=== PATIENT | female | born 1965 | race Caucasian/White ===

== ENCOUNTER 2017-10-23 12:33 | Emergency (ER) | payer OTHER ==
[~2017-10-23] VITALS: Ht 152.4 cm; Wt 72.8 kg
[2017-10-23 12:41] VITALS: Ht 152.4 cm; Wt 72.8 kg
[2017-10-23 15:18] LABS: BASOPHIL # 0.1 10^3/ul (0.0-0.1); EOSINOPHILS # 0.1 10^3/ul (0.0-0.5); EOSINOPHILS % 1.5 % (0.0-7.0); HEMATOCRIT 39.4 % (37.0-47.0); HEMOGLOBIN 13.2 g/dl (12.0-16.0); LYMPHOCYTES # 2.9 10^3/ul (0.8-2.9); LYMPHOCYTES % 47.1 % (15.0-51.0); MEAN CORPUSCULAR HGB CONC 33.5 g/dl (32.0-37.0); MEAN CORPUSCULAR VOLUME 86.6 fl (82.0-101.0); MEAN PLATELET VOLUME 9.7 fl (7.4-10.4); MONOCYTE # 0.5 10^3/ul (0.3-0.9); MONOCYTES % 7.5 % (0.0-11.0); NEUTROPHIL # 2.6 10^3/ul (1.6-7.5); NEUTROPHILS % 42.6 % (39.0-77.0); PLATELET COUNT 280 10^3/UL (140-415); RED BLOOD COUNT 4.55 10^6/ul (4.20-5.40); RED CELL DISTRIBUTION WIDTH 13.3 % (11.5-14.5); WHITE BLOOD COUNT 6.1 10^3/ul (4.8-10.8)
--- NOTE | 2017-10-23 15:20 | RADRPT ---
PROCEDURE: CT ABDOMEN AND PELVIS WITHOUT CONTRAST. CLINICAL INDICATION: Abdominal pain TECHNIQUE: CT scan of the abdomen and pelvis without contrast was performed on a multidetector hig h-resolution CT scanner. The patient was scanned without intravenous contrast. Coronal and sagittal reformatted images were obtained from the axial source images. Images were reviewed on a high-resol [employer] PACS workstation. The total exam CTDI equals 12.2 mGy and the total exam DLP equals 680 mGy-cm . One or more of the following dose reduction techniques were used: Automated exposure control. Adjustment of the mA and/or kV according to patient size. Use of iterative reconstruction technique. DICOM images are available COMPARISON: None FINDINGS: CT abdomen: The lung bases are clear. The heart size is within limits. There is no significant pericardial effus ion. Hepatic morphology is within normal limits. No gross contour deforming masses. The gallbladder is co ntracted. No evidence of intrahepatic or extrahepatic biliary dilatation. The spleen and pancreas are within normal limits. Both adrenal glands are within normal limits. Both kidneys are in normal anatomic position. No evidence of obstruction or hydronephrosis. No gross renal/ureteric calculi. The visualized GI tract demonstrate normal caliber loops of small and large bowel. No evidence of melyssa wel obstruction. The appendix is within normal limits. The unenhanced aorta is unremarkable. No significant retroperitoneal lymphadenopathy. CT pelvis: The bladder is within normal limits. The rectosigmoid colon is within normal limits. No significant free fluid. No significant pelvic lymphadenopathy The uterus appears to be within normal limits. The visualized osseous structures, appears to be within normal limits. IMPRESSION: 1. No evidence of acute intra-abdominal/pelvic inflammatory process. No evidence of bowel obstructio n. The appendix is within normal limits. 2. No evidence of free fluid or free air. No gross focal fluid collections. 3. Mild atherosclerotic disease of the aorta. Otherwise, unremarkable unenhanced CT scan of the abdo men/pelvis. RPTAT: AAPP Physician Shannon Date Time Electronically viewed and signed by Physician Shannon on 10/23/2017 15:20 JL/
[2017-10-23 15:28] LABS: ADD UMIC NO; INR 0.88; PT RATIO 0.9; UR ASCORBIC ACID NEGATIVE (NEGATIVE); UR BACTERIA FEW /HPF (NONE SEEN); UR BILIRUBIN (Dip) NEGATIVE (NEGATIVE); UR BLOOD (Dip) NEGATIVE (NEGATIVE); UR CLARITY SLIGHTLY CLOUDY (CLEAR); UR COLOR STRAW (YELLOW); UR GLUCOSE (Dip) NEGATIVE (NEGATIVE); UR KETONES (Dip) NEGATIVE (NEGATIVE); UR LEUKOCYTE ESTERASE (Dip) NEGATIVE Leu/ul (NEGATIVE); UR NITRITE (Dip) NEGATIVE (NEGATIVE); UR RBC 1 /HPF (0-5); UR SPECIFIC GRAVITY (Dip) 1.005 (1.003-1.030); UR SQUAMOUS EPITHELIAL CELL FEW /HPF (FEW); UR TOTAL PROTEIN (Dip) NEGATIVE (NEGATIVE); UR UROBILINOGEN (Dip) NEGATIVE (NEGATIVE)
[2017-10-23 15:29] LABS: PARTIAL THROMBOPLASTIN TIME 27.8 Sec (25.0-35.0)
[2017-10-23 15:32] LABS: ALBUMIN 4.7 g/dl (3.3-4.9); ALBUMIN/GLOBULIN RATIO 1.23; BILIRUBIN,INDIRECT 0.4 mg/dl (0-1.1); BILIRUBIN,TOTAL 0.4 mg/dl (0.2-1.3); CALCIUM 9.6 mg/dl (8.4-10.2); CREATININE 0.71 mg/dl (0.44-1.00); POTASSIUM 4.1 mmol/L (3.5-5.1); TOTAL PROTEIN 8.5 g/dl (6.1-8.1)
--- NOTE | 2017-10-23 15:42 | RADRPT ---
PROCEDURE: US Pelvis. CLINICAL INDICATION: Pelvic pain TECHNIQUE: Transabdominal and transvaginal pelvic ultrasound are performed. COMPARISON: 10/23/2017 FINDINGS: The uterus is heterogeneous in echogenicity and anteverted in orientation. The uterus measures 5.8 x 3.5 x 4.8 cm. No focal fibroids are identified. A normal endometrium is identified measuring 5.5 mm. The cervix is normal in appearance. Both ovaries are identified, and normal in size, shape, and appearance. No solid adnexal masses are seen.. Normal Doppler flow is noted of both ovaries. The right ovary measures 2.6 x 1.4 x 2.0 cm, and the left ovary measures 2.4 x 1.0 x 1.9 cm There is no free fluid in the pelvis IMPRESSION: Unremarkable pelvic ultrasound. RPTAT: HH .Adriano Quezada MD, Date Time Electronically viewed and signed by .Adriano Quezada MD, MD on 10/23/2017 15:41 .W/
[2017-10-23] MEDS ORDERED: NAPR-260 PO (15:51)
[2017-10-23 16:22] VITALS: BP 122/71; PULSE 62; RESP 16; TEMP 98.6
--- NOTE | 2017-10-23 17:24 | ERD ---
ER Documentation Chief Complaint Chief Complaint Complains of abdominal pain x 4-5 days HPI This patient is a 51-year-old male presenting to the emergency department with complaints of right lower quadrant abdominal pain intermittently for the past 5 days. Pain is worse with bending and sleeping. She describes it as a burning sensation. She has never had this in the past. She has taken Tylenol with mild relief of symptoms. She denies nausea, vomiting, diarrhea, fevers, chills , vaginal discharge, vaginal bleeding, urinary symptoms, or other symptoms at this time. ROS All systems reviewed and are negative except as per history of present illness. Medications Home Meds Active Scripts Naproxen* (Naprosyn*) 500 Mg Tablet, 500 MG PO BID Y for PAIN AND/OR INFLAMMATION, #20 TAB Prov:BHARATH MENSAH PA-C 10/23/17 Allergies Allergies: Coded Allergies: No Known Allergy (Unverified , 10/23/17) PMhx/Soc Medical and Surgical Hx: pt denies Medical Hx, pt denies Surgical Hx Hx Alcohol Use: No Hx Substance Use: No Hx Tobacco Use: No Smoking Status: Never smoker Physical Exam Vitals Vital Signs Date Time Temp Pulse Resp B/P Pulse Ox O2 Delivery O2 Flow Rate FiO2 10/23/17 16:22 98.6 62 16 122/71 97 10/23/17 12:41 98.2 72 20 130/72 99 Physical Exam Const: Nontoxic, well-appearing female in no acute distress. Head: Atraumatic Eyes: Normal Conjunctiva ENT: Normal External Ears, Nose and Mouth. Neck: Full range of motion..~ No meningismus. Resp: Clear to auscultation bilaterally Cardio: Regular rate and rhythm, no murmurs Abd: Soft, mild tenderness to palpation to the right lower quadrant and right suprapubic area without rebound tenderness or guarding, non distended. Normal bowel sounds. Negative Quijano sign. Skin: No petechiae or rashes Back: No midline or flank tenderness. No CVA tenderness. Ext: No cyanosis, or edema Neur: Awake and alert Psych: Normal Mood and Affect Result Diagram: 10/23/17 1500 10/23/17 1500 Results 24 hrs Laboratory Tests Test 10/23/17 15:00 White Blood Count 6.110^3/ul Red Blood Count 4.5510^6/ul Hemoglobin 13.2g/dl Hematocrit 39.4% Mean Corpuscular Volume 86.6fl Mean Corpuscular Hemoglobin 29.0pg Mean Corpuscular Hemoglobin Concent 33.5g/dl Red Cell Distribution Width 13.3% Platelet Count 08478^3/UL Mean Platelet Volume 9.7fl Neutrophils % 42.6% Lymphocytes % 47.1% Monocytes % 7.5% Eosinophils % 1.5% Basophils % 1.0% Nucleated Red Blood Cells % 0.0/100WBC Neutrophils # 2.610^3/ul Lymphocytes # 2.910^3/ul Monocytes # 0.510^3/ul Eosinophils # 0.110^3/ul Basophils # 0.110^3/ul Nucleated Red Blood Cells # 0.010^3/ul Prothrombin Time 12.0Sec Prothrombin Time Ratio 0.9 INR International Normalized Ratio 0.88 Activated Partial Thromboplast Time 27.8Sec Urine Color STRAW Urine Clarity SLIGHTLY CLOUDY Urine pH 6.0 Urine Specific [place] 1.005 Urine Ketones NEGATIVEmg/dL Urine Nitrite NEGATIVEmg/dL Urine Bilirubin NEGATIVEmg/dL Urine Urobilinogen NEGATIVEmg/dL Urine Leukocyte Esterase NEGATIVELeu/ul Urine Microscopic RBC 1/HPF Urine Microscopic WBC 3/HPF Urine Squamous Epithelial Cells FEW/HPF Urine Bacteria FEW/HPF Urine Hemoglobin NEGATIVEmg/dL Urine Glucose NEGATIVEmg/dL Urine Total Protein NEGATIVEmg/dl Sodium Level 144mmol/L Potassium Level 4.1mmol/L Chloride Level 102mmol/L Carbon Dioxide Level 29mmol/L Anion Gap 17 Blood Urea Nitrogen 10mg/dl Creatinine 0.71mg/dl Glucose Level 110mg/dl Calcium Level 9.6mg/dl Total Bilirubin 0.4mg/dl Direct Bilirubin 0.00mg/dl Indirect Bilirubin 0.4mg/dl Aspartate Amino Transf (AST/SGOT) 31IU/L Alanine Aminotransferase (ALT/SGPT) 41IU/L Alkaline Phosphatase 78IU/L Total Protein 8.5g/dl Albumin 4.7g/dl Globulin 3.80g/dl Albumin/Globulin Ratio 1.23 Lipase 172U/L Procedures/MDM This patient is a very pleasant 51-year-old female presented to the emergency department with complaints of right lower quadrant and right suprapubic pain. Physical examination does show some mild tenderness palpation of this area, but no rebound tenderness or guarding. A full workup was obtained given the nature of the patient's symptoms and physical examination. Review of laboratory studies: CBC showed no signs of leukocytosis or anemia. Chemistry panel was within normal limits with no significant acute abnormalities. Urinalysis is not concerning for infection, proteinuria, hematuria, nitrates, or other acute findings. CT abdomen and pelvis without contrast showed no significant acute abnormalities. Full report may be viewed below. Ultrasound of the pelvis showed no acute findings. Full report may be viewed below. Patient symptoms may be secondary to musculoskeletal injury. Low suspicion for acute abdomen, bowel obstruction, appendicitis, ischemic bowel, sepsis, or other emergencies. Patient is stable and appropriate for outpatient management with prescriptions. No evidence of life-threatening pathology at time of discharge. Pt/family in agreement with discharge plan/diagnosis. Pt/family advised to return immediately with any new or worsening symptoms. Follow-up with primary care physician within the next 1-2 days. Disclaimer: Inadvertent spelling and grammatical errors are likely due to EHR/ dictation software use and do not reflect on the overall quality of patient care. Also, please note that the electronic time recorded on this note does not necessarily reflect the actual time of the patient encounter. PROCEDURE: CT ABDOMEN AND PELVIS WITHOUT CONTRAST. CLINICAL INDICATION: Abdominal pain TECHNIQUE: CT scan of the abdomen and pelvis without contrast was performed on a multidetector high-resolution CT scanner. The patient was scanned without intravenous contrast. Coronal and sagittal reformatted images were obtained from the axial source images. Images were reviewed on a high-resolution PACS workstation. The total exam CTDI equals 12.2 mGy and the total exam DLP equals 680 mGy-cm. One or more of the following dose reduction techniques were used: Automated exposure control. Adjustment of the mA and/or kV according to patient size. Use of iterative reconstruction technique. DICOM images are available COMPARISON: None FINDINGS: CT abdomen: The lung bases are clear. The heart size is within limits. There is no significant pericardial effusion. Hepatic morphology is within normal limits. No gross contour deforming masses. The gallbladder is contracted. No evidence of intrahepatic or extrahepatic biliary dilatation. The spleen and pancreas are within normal limits. Both adrenal glands are within normal limits. Both kidneys are in normal anatomic position. No evidence of obstruction or hydronephrosis. No gross renal/ureteric calculi. The visualized GI tract demonstrate normal caliber loops of small and large bowel. No evidence of bowel obstruction. The appendix is within normal limits. The unenhanced aorta is unremarkable. No significant retroperitoneal lymphadenopathy. CT pelvis: The bladder is within normal limits. The rectosigmoid colon is within normal limits. No significant free fluid. No significant pelvic lymphadenopathy The uterus appears to be within normal limits. The visualized osseous structures, appears to be within normal limits. IMPRESSION: 1. No evidence of acute intra-abdominal/pelvic inflammatory process. No evidence of bowel obstruction. The appendix is within normal limits. 2. No evidence of free fluid or free air. No gross focal fluid collections. 3. Mild atherosclerotic disease of the aorta. Otherwise, unremarkable unenhanced CT scan of the abdomen/pelvis. RPTAT: AAPP Physician Shannon Date Time Electronically viewed and signed by Physician Shannon on 10/23/2017 15:20 PROCEDURE: US Pelvis. CLINICAL INDICATION: Pelvic pain TECHNIQUE: Transabdominal and transvaginal pelvic ultrasound are performed. COMPARISON: 10/23/2017 FINDINGS: The uterus is heterogeneous in echogenicity and anteverted in orientation. The uterus measures 5.8 x 3.5 x 4.8 cm. No focal fibroids are identified. A normal endometrium is identified measuring 5.5 mm. The cervix is normal in appearance. Both ovaries are identified, and normal in size, shape, and appearance. No solid adnexal masses are seen.. Normal Doppler flow is noted of both ovaries. The right ovary measures 2.6 x 1.4 x 2.0 cm, and the left ovary measures 2.4 x 1.0 x 1.9 cm There is no free fluid in the pelvis IMPRESSION: Unremarkable pelvic ultrasound. RPTAT: HH .Adriano Quezada MD, Date Time Electronically viewed and signed by .Adriano Quezada MD, MD on 10/23/2017 15:41 Departure Diagnosis: Primary Impression: Suprapubic pain Condition: Fair Patient Instructions: Muscle Strain, Abdomen Referrals: [facility] YOU HAVE RECEIVED A MEDICAL SCREENING EXAM AND THE RESULTS INDICATE THAT YOU DO NOT HAVE A CONDITION THAT REQUIRES URGENT TREATMENT IN THE EMERGENCY DEPARTMENT. FURTHER EVALUATION AND TREATMENT OF YOUR CONDITION CAN WAIT UNTIL YOU ARE SEEN IN YOUR DOCTORS OFFICE WITHIN THE NEXT 1-2 DAYS. IT IS YOUR RESPONSIBILITY TO MAKE AN APPOINTMENT FOR FOLOW-UP CARE. IF YOU HAVE A PRIMARY DOCTOR --you should call your primary doctor and schedule an appointment IF YOU DO NOT HAVE A PRIMARY DOCTOR YOU CAN CALL OUR PHYSICIAN REFERRAL HOTLINE AT IF YOU CAN NOT AFFORD TO SEE A PHYSICIAN YOU CAN CHOSE FROM THE FOLLOWING [facility] [address] [facility] [facility] [address] [facility] [facility] [address] [facility] [address] [facility] [facility] [address] [facility]. [facility] [address] Additional Instructions: Call your primary care doctor TOMORROW for an appointment during the next 1-2 days.See the doctor sooner or return here if your condition worsens before your appointment time. BHARATH MENSAH PA-C Oct 23, 2017 17:24
== END 2017-10-23 16:20 | disposition home or self-care (01) ==
LOC: FTE 12:33
DX: R10.31 Right lower quadrant pain (principal); R10.2 Pelvic and perineal pain
CPT/HCPCS: 36415; 74176; 76830; 76856; 80053; 81001; 81003; 83690; 85025; 85610; 85730; Z7502

== ENCOUNTER 2018-05-09 13:16 | Emergency (ER) | END 2018-05-09 16:05 | disposition home or self-care (01) ==